=== PATIENT | male | born 1970 | race African-American/Black ===

== ENCOUNTER 2017-03-08 13:20 | Emergency (ER) | payer SELFPAY ==
--- NOTE | 2017-03-08 14:54 | ER Document Report ---
HPI - HPI Pain Level: 4 Notes: Patient is a 46-year-old male no significant past medical history presents the ED complaining of right MTP joint pain 2 days without any known injury. Patient states that it was more swollen on Saturday, but the swelling has decreased. Patient states that his pain has slightly improved since Saturday, but he continues to have pain with pressure to the area and weightbearing. Patient does not have a PCM and has not had blood work performed recently. Patient has never been told that he has elevated uric acid levels and/or gout. Patient has not noticed any significant redness, abscess, discharge, or red streaks. Denies any recent illness. Patient admits to smoking weed, but denies IV drug use. Denies any other drug allergies. Denies any headache, fever, URI, sore throat, chest pain, palpitations, syncope, cough, shortness of breath, wheeze, dyspnea, abdominal pain, nausea/vomiting/diarrhea, dysuria, hematuria, numbness/tingling, muscle paralysis/weakness, or rash. - ROS Notes: REVIEW OF SYSTEMS: CONSTITUTIONAL : Denies fever, chills, or sweats. Denies recent illness. EENT: Denies eye, ear, throat, or mouth pain or symptoms. Denies nasal or sinus congestion or discharge. Denies throat, tongue, or mouth swelling or difficulty swallowing. CARDIOVASCULAR: Denies chest pain. Denies palpitations or racing or irregular heart beat. Denies ankle edema. RESPIRATORY: Denies cough, cold, or chest congestion. Denies shortness of breath, difficulty breathing, or wheezing. GASTROINTESTINAL: Denies abdominal pain or distention. Denies nausea, vomiting , or diarrhea. Denies blood in vomitus, stools, or per rectum. Denies black, tarry stools. Denies constipation. GENITOURINARY: Denies difficulty urinating, painful urination, burning, frequency, blood in urine, or discharge. MUSCULOSKELETAL: see hpi SKIN: Denies rash, lesions or sores. NEUROLOGICAL: Denies headache. Denies sensory loss, numbness, or tingling. Denies seizures. ALL OTHER SYSTEMS REVIEWED AND NEGATIVE. Dictation was performed using [employer] voice recognition software - MUSCULOSKELETAL Musculoskeletal: REPORTS: Extremity pain - right big toe Past Medical History - Social History Smoking Status: Current Some Day Smoker Chew tobacco use (# tins/day): No Frequency of alcohol use: None Drug Abuse: Marijuana Family History: Reviewed & Not Pertinent Patient has suicidal ideation: No Patient has homicidal ideation: No Renal/ Medical History: Denies: Hx Peritoneal Dialysis - Immunizations Hx Diphtheria, Pertussis, Tetanus Vaccination: Yes Vertical Provider Document - CONSTITUTIONAL Agree With Documented VS: Yes Notes: PHYSICAL EXAMINATION: GENERAL: Well-appearing, well-nourished and in no acute distress. A&Ox4 LUNGS: Breath sounds clear to auscultation bilaterally and equal. No wheezes rales or rhonchi. HEART: Regular rate and rhythm without murmurs, rubs, gallops. Musculoskeletal: Rt foot/toes: FROM to passive/active. Strength 5+/5. + mild swelling noted to the rt MTP joint w/o significant erythema. No discharge, abscess, or streaks. + tenderness to palp of the MTP joint. N/V intact distal. Extremities: No cyanosis, clubbing, or edema b/l. Peripheral pulses 2+. Capillary refill less than 3 seconds. NEUROLOGICAL: Normal speech, limping gait. Normal sensory, motor exams PSYCH: Normal mood, normal affect. SKIN: Warm, Dry, normal turgor, no rashes or lesions noted. - INFECTION CONTROL TRAVEL OUTSIDE OF THE [place] IN LAST 30 DAYS: No - RESPIRATORY O2 Sat by Pulse Oximetry: 98 Course - Re-evaluation Re-evalutation: 03/08/17 15:52 Patient is an afebrile, well-hydrated, 46-year-old male who presents the ED with right MTP joint pain, suspect inflammatory at this time. Vitals are stable. PE is otherwise unremarkable for any neurovascular compromise, obvious tendon/ligament rupture, obvious fracture/dislocation, septic joint. Patient to monitor symptoms for acute changes and seek medical attention if so. X-ray was unremarkable for any acute pathology. I will send him home with a prescription for a steroid taper. Recommend conservative measures for symptoms. Recheck with your PCM in 3-5 days. Consider consult with orthopedics and physical therapy. Return to the ED with any worsening/ concerning symptoms otherwise as reviewed in discharge. Patient is in agreement. - Vital Signs Vital signs: Temp Pulse Resp BP Pulse Ox 97.7 F 58 L 16 121/76 98 03/08/17 14:00 03/08/17 14:00 03/08/17 14:00 03/08/17 14:00 03/08/17 14:00 Discharge - Discharge Clinical Impression: Toe pain, right Condition: Stable Disposition: HOME, SELF-CARE Instructions: Gout ([facility]), Gout Diet ([facility]), Steroid Medication Additional Instructions: Rest, Ice, Compression, Elevation Tylenol/ibuprofen as needed Light stretches daily Strength exercises as able Moist heat and massage may help F/u with your PCP in 3-5 days for a recheck Consider consult(s) with Orthopedics/physical therapy/podiatry for ongoing/ worsening symptoms Return to the ED with any worsening symptoms and/or development of fever, headache, chest pain, palpitations, syncope, shortness of breath, trouble breathing, abdominal pain, n/v/d, muscle weakness/paralysis, numbness/tingling, swelling, redness, or other worsening symptoms that are concerning to you. Prescriptions: Prednisone [Deltasone 10 mg Tablet] 10 mg PO ASDIR PRN #21 tablet PRN Reason: Referrals: [facility] ([facility]) [Provider Group] - Follow up as needed
--- NOTE | 2017-03-08 15:45 | RADIOLOGY REPORT (SQ) ---
EXAM DESCRIPTION: FOOT RIGHT COMPLETE COMPLETED DATE/TIME: 03/08/2017 3:14 pm REASON FOR STUDY: rt MTP joint pain COMPARISON: March 2010 NUMBER OF VIEWS: Three views. TECHNIQUE: AP, lateral and oblique radiographic images acquired of the right foot. LIMITATIONS: None. FINDINGS: MINERALIZATION: Normal. BONES: No acute fracture or dislocation. No worrisome bone lesions. The previously described four s esamoid bones at the level of the 1st MTP joint medially are again identified and appear unchanged. A single sesamoid bone is again identified laterally. JOINTS: Mild hallux valgus is identified. SOFT TISSUES: No soft tissue swelling. No foreign body. OTHER: No other significant finding. IMPRESSION: No acute fracture or dislocation. Other findings as noted above TECHNICAL DOCUMENTATION: JOB ID: [id number] [employer]- All Rights Reserved
[2017-03-08 16:38] VITALS: BP 123/73
== END 2017-03-08 16:38 | disposition home or self-care (01) ==
LOC: ER 13:20
DX: M25.571 Pain in right ankle and joints of right foot (principal); M25.474 Effusion, right foot; F17.200 Nicotine dependence, unspecified, uncomplicated
CPT/HCPCS: 99283

== ENCOUNTER 2017-05-09 23:56 | Emergency (ER) | payer OTHER ==
[2017-05-10] MEDS ORDERED: COLCHICINE 0.6 MG TABLET PO ONE ×2 (02:50)
--- NOTE | 2017-05-10 02:50 | ER Document Report ---
ED General - General Chief Complaint: Foot Pain Stated Complaint: FOOT PAIN Time Seen by Provider: 05/10/17 02:30 Notes: Patient is a 43-year-old male who presents with complaint of pain into his right MTP joint. Patient says he has a history of gout. He first had gout last month. He said he was treated and the symptoms went away. He says he has had exacerbation of his symptoms twice since then. He is now been dealing with the symptoms again for last few days but did not want come to the hospital. Said he never followed up patiently following his first recurrence of symptoms. He denies any fevers. Denies any penetrating injury or trauma to the foot. He says the pain stays mostly in the right MTP joint but sometimes will have a pain that shoots into the dorsum of his foot. No other complaints at this time. He does admit that he continues to eat meats and also drinks alcohol a few times a week. TRAVEL OUTSIDE OF THE [place] IN LAST 30 DAYS: No - Related Data Allergies/Adverse Reactions: No Known Allergies Allergy (Verified 03/08/17 13:21) Past Medical History - Social History Smoking Status: Unknown if Ever Smoked Frequency of alcohol use: Occasional Drug Abuse: None Family History: Reviewed & Not Pertinent Renal/ Medical History: Denies: Hx Peritoneal Dialysis - Immunizations Hx Diphtheria, Pertussis, Tetanus Vaccination: Yes Review of Systems - Review of Systems Notes: My Normal Review Basic REVIEW OF SYSTEMS: CONSTITUTIONAL : Denies fever, chills, or sweats. Denies recent illness. GASTROINTESTINAL: Denies abdominal pain. Denies nausea, vomiting, or diarrhea. MUSCULOSKELETAL: Pain in first metatarsophalangeal joint of right foot SKIN: Denies rash or skin lesions. NEUROLOGICAL: Denies sensory or motor loss. ALL OTHER SYSTEMS REVIEWED AND NEGATIVE. Physical Exam - Vital signs Vitals: Temp Pulse Resp BP Pulse Ox 97.9 F 77 18 131/72 H 96 05/10/17 00:38 05/10/17 00:38 05/10/17 00:38 05/10/17 00:38 05/10/17 00:38 - Notes Notes: General Appearance: Well nourished, alert, cooperative, no acute distress, moderate obvious discomfort. Vitals: reviewed, See vital signs table. Extremities: strength 5/5 in all extremities, good pulses in all extremities, patient has some swelling to the first MTP joints with just very faint redness. Exam is very consistent with that of gout. There is now a large amount of heat or warmth. Is no spreading redness of the foot. Remainder foot is nontender to palpation. Skin: warm, dry, appropriate color, no rash Neuro: speech clear, oriented x 3, normal affect, responds appropriately to questions. Course - Re-evaluation Re-evalutation: 05/10/17 05:06 Patient is what appears to be gout. He has a history of gout. Exam is consistent with gout. I have given him colchicine here. Will place him on indomethacin. I encouraged her follow-up with the primary care doctor for reevaluation and also to discuss options of placing him on medication to help prevent future gout attacks. Also talked him at length about the importance of following strict diet. Patient agrees. Patient to return to ER if he has spreading redness or swelling of his foot, fevers, or if he feels that his pain is worsening. Patient agrees with plan and will be discharged home. Dictation of this chart was performed using voice recognition software; therefore, there may be some unintended grammatical errors. - Vital Signs Vital signs: Temp Pulse Resp BP Pulse Ox 98.3 F 59 L 14 124/64 97 05/10/17 02:55 05/10/17 02:55 05/10/17 02:55 05/10/17 02:55 05/10/17 02:55 Discharge - Discharge Clinical Impression: Gout Qualifiers: Gout site: foot Gout etiology: unspecified cause Chronicity: acute Laterality: right Qualified Code(s): M10.9 - Gout, unspecified Condition: Good Disposition: HOME, SELF-CARE Instructions: Family Physicians / Practices Additional Instructions: Gout Diet Changing your diet can decrease the uric acid in your blood. High levels of uric acid cause gouty arthritis and uric acid kidney stones. If you have gout , you should avoid meats that are high in purine. Meat products to avoid include liver, kidneys, and brains. In general, poultry is better than red meats. Seafoods to avoid include anchovies, sardines, carbone, mackerel, and scallops. In addition to limiting purine-rich foods, people with gout should limit protein intake to 10-15% of total calories. Carbohydrate intake should be around 50% of total daily calories. Limit fat intake to 30% of total daily calories. Cholesterol intake should be less than 300 mg/day. Maintain or achieve a healthy body weight. Weight loss should be gradual. Rapid weight loss can actually increase uric acid levels temporarily. Alcohol, especially beer, should be avoided. Get plenty of fluids. This dilutes urinary uric acid, and helps prevent uric acid kidney stones. Drink eight to twelve cups of water daily. Please take the last pill of colchicine 1 hour after we give you the inital dose. Please take the Indomethacin with food. Please follow up with a primary care doctor in 1 week for reevaluation and for discussion about medications that can help prevent gout. Please return to the ER if you have worsening pain, fevers, or increasing swelling. Prescriptions: Indomethacin [Indocin 50 mg Capsule] 50 mg PO TID #21 capsule
[2017-05-10 02:57] VITALS: BP 124/64
== END 2017-05-10 03:00 | disposition home or self-care (01) ==
LOC: ER 23:56
DX: M10.9 Gout, unspecified (principal)
CPT/HCPCS: 99283

== ENCOUNTER 2017-08-09 01:02 | Emergency (ER) | payer OTHER ==
[2017-08-09 02:01] LABS: ABSOLUTE BASOPHILS # (AUTO) 0.1 10^3/uL (0.0-0.2); ABSOLUTE EOSINOPHILS # (AUTO) 0.4 10^3/uL (0.0-0.6); ABSOLUTE LYMPHOCYTES (AUTO) 3.4 10^3/uL (0.5-4.7); ABSOLUTE MONOCYTES (AUTO) 0.6 10^3/uL (0.1-1.4); ABSOLUTE NEUT (AUTO) 2.8 10^3/uL (1.7-8.2); BASOPHILS % (AUTO) 1.4 % (0-2); EOSINOPHILS % (AUTO) 5.1 % (0-6); HEMATOCRIT 43.6 % (37.9-51.0); HEMOGLOBIN 14.5 g/dL (13.5-17.0); LYMPHOCYTES % (AUTO) 47.6 % (13-45); MEAN CORPUSCULAR HEMOGLOBIN 28.6 pg (27.0-33.4); MEAN CORPUSCULAR HGB CONC 33.2 g/dL (32.0-36.0); MEAN CORPUSCULAR VOLUME 86 fl (80-97); MONOCYTES % (AUTO) 7.6 % (3-13); PLATELET COUNT 230 10^3/uL (150-450); RED BLOOD COUNT 5.06 10^6/uL (4.35-5.55); RED CELL DISTRIBUTION WIDTH 13.5 % (11.5-14.0); SEGMENTED NEUTROPHILS % (AUTO) 38.3 % (42-78); TOTAL CELLS COUNTED % (AUTO) 100 %; WHITE BLOOD COUNT 7.3 10^3/uL (4.0-10.5)
[2017-08-09 02:23] LABS: ALANINE AMINOTRANSFERASE 34 U/L (21-72); ALKALINE PHOSPHATASE 67 U/L (38-126); ANION GAP 13 (5-19); ASPARTATE AMINO TRANSFERASE 24 U/L (17-59); BILIRUBIN,DIRECT 0.4 mg/dL (0.0-0.4); BILIRUBIN,TOTAL 0.4 mg/dL (0.2-1.3); BLOOD UREA NITROGEN 16 mg/dL (7-20); CALCIUM 9.6 mg/dL (8.4-10.2); CARBON DIOXIDE 26 mmol/L (22-30); CHLORIDE 105 mmol/L (98-107); GLUCOSE 134 mg/dL (75-110); POTASSIUM 3.8 mmol/L (3.6-5.0); SODIUM 144.4 mmol/L (137-145)
[2017-08-09 03:34] LABS: FREE T3 4.92 pg/mL (2.77-5.27); FREE T4 (FREE THYROXINE) 0.99 ng/dL (0.78-2.19)
--- NOTE | 2017-08-09 03:52 | ER Document Report ---
ED General - General Chief Complaint: Sore Throat Stated Complaint: sore throat Time Seen by Provider: 08/09/17 01:24 Notes: Patient is a 47 year old male who presents with complaint of swelling in his neck for 9 months. He says he thinks his lymph nodes are swollen but when asked where the swelling is he actually points at his thyroid gland. He says that he is also noticed that he has lost weight over last several weeks. He told his mom what was going on his mom told to come to the ER to have blood work performed forgot what is wrong with him. Patient takes no medications is otherwise healthy. He has not seen a doctor about the swelling that he is feeling. He says no other symptoms he has a sometimes he gets a choking type sensation. He says this only occurs when he smokes marijuana. He says if he does not smoke marijuana he does not get the choking type sensation. He denies any current tobacco use. Says he does drink about 2-3 beers a day. TRAVEL OUTSIDE OF THE [place] IN LAST 30 DAYS: No - Related Data Allergies/Adverse Reactions: No Known Allergies Allergy (Verified 03/08/17 13:21) Past Medical History - Social History Smoking Status: Unknown if Ever Smoked Frequency of alcohol use: Occasional Drug Abuse: Marijuana Family History: Reviewed & Not Pertinent Patient has suicidal ideation: No Patient has homicidal ideation: No Renal/ Medical History: Denies: Hx Peritoneal Dialysis - Immunizations Hx Diphtheria, Pertussis, Tetanus Vaccination: Yes Review of Systems - Review of Systems Notes: My Normal Review Basic REVIEW OF SYSTEMS: CONSTITUTIONAL : Denies fever, chills, or sweats. Denies recent illness. Weight loss. EENT: Denies eye, ear, throat, or mouth pain or symptoms. Denies nasal or sinus congestion. Patient is swelling of her thyroid. CARDIOVASCULAR: Denies chest pain. RESPIRATORY: Denies cough, cold, or chest congestion. Denies shortness of breath, difficulty breathing, or wheezing. GASTROINTESTINAL: Denies abdominal pain. Denies nausea, vomiting, or diarrhea. Denies constipation. Last BM: GENITOURINARY: Denies difficulty urinating, painful urination, burning, frequency, or blood in urine.: MUSCULOSKELETAL: Denies neck or back pain or joint pain or swelling. SKIN: Denies rash or skin lesions. NEUROLOGICAL: Denies altered mental status or loss of consciousness. Denies headache. Denies weakness or paralysis or loss of use of either side. Denies problems with gait or speech. Denies sensory or motor loss. ALL OTHER SYSTEMS REVIEWED AND NEGATIVE. Physical Exam - Vital signs Vitals: Temp Pulse Resp BP Pulse Ox 97.4 F 64 18 142/89 H 98 08/09/17 01:09 08/09/17 01:09 08/09/17 01:09 08/09/17 01:09 08/09/17 01:09 - Notes Notes: General Appearance: Well nourished, alert, cooperative, no acute distress, no obvious discomfort. Well-appearing. Vitals: reviewed, See vital signs table. Head: no swelling or tenderness to the head Eyes: PERRL, EOMI, Conjuctiva clear Mouth: No decreasd moisture Throat: No tonsillar inflammation, No airway obstruction, No lymphadenopathy Neck: Supple, no neck tenderness, mildly symmetrically enlarged thyroid on exam. Lungs: No wheezing, No rales, No rhonci, No accessory muscle use, good air exchange bilaterally. Heart: Normal rate, Regular rythm, No murmur, no rub Abdomen: Normal BS, soft, No rigidity, No abdominal tenderness, No guarding, no rebound, no abdominal masses, no organomegaly Extremities: strength 5/5 in all extremities, good pulses in all extremities, no swelling or tenderness in the extremities, no edema. Skin: warm, dry, appropriate color, no rash Neuro: speech clear, oriented x 3, normal affect, responds appropriately to questions. Course - Re-evaluation Re-evalutation: 08/09/17 04:49 I did call lab. Said that she did run a TSH is undergoing auditor/quality and is why there is a big delay resulting this. T3 and T4 also not resulted. She says that these are indeed ready to resulting at this time. These are normal. I did speak with the patient informed him of the late he is understanding of that. We will continue wait for the results of his TSH. 08/09/17 05:52 The area of swelling the patient points to on his neck is actually enlarged thyroid gland. Ultrasound did not show any evidence of masses or tumors or abnormal cysts per the report from radiologist. His thyroid function is currently normal. He otherwise looks well and has no further complaints. Feel he is safe to be discharged home. I will refer him to primary care doctor to get and continue workup as thyroid and to continue to watch his TSH and T4 levels. Informed him that he must return to ER immediately if he feels jittery , has palpitations, has fever, or if he feels unwell in any way. Patient agrees with plan will be discharged home. Dictation of this chart was performed using voice recognition software; therefore, there may be some unintended grammatical errors. - Vital Signs Vital signs: Temp Pulse Resp BP Pulse Ox 97.4 F 64 18 142/89 H 98 08/09/17 01:09 08/09/17 01:09 08/09/17 01:09 08/09/17 01:09 08/09/17 01:09 - Laboratory Result Diagrams: 08/09/17 01:45 08/09/17 01:45 Laboratory results interpreted by me: 08/09/17 08/09/17 01:45 01:45 Seg Neutrophils % 38.3 L Lymphocytes % 47.6 H Glucose 134 H Discharge - Discharge Clinical Impression: Enlarged thyroid Condition: Good Disposition: HOME, SELF-CARE Instructions: Family Physicians / Practices Additional Instructions: Your thyroid feels enlarged on exam. Your ultrasound did not show any abnormal masses or cyst on your thyroid. Currently your Thyroid function is normal according to your blood work. Because of your symptoms it is very important that you follow up with a primary care physician to discuss further workup of your thyroid. please do not smoke marijuana. Please return to the ER immediately if you develop increasing neck swelling, fevers, difficulty breathing, difficulty swallowing, or if you feel unwell.
[2017-08-09 05:38] LABS: THYROID STIMULATING HORMONE 1.7 uIU/mL (0.47-4.68)
--- NOTE | 2017-08-09 06:17 | RADIOLOGY REPORT (SQ) ---
EXAM DESCRIPTION: U/S THYROID/SFT TISS HD NECK CLINICAL HISTORY: 47 years, Male, thyroid enlargement w/ weight loss COMPARISON: None. LIMITATIONS: None. FINDINGS: 5.9 x 2.1 x 2.6 cm right thyroid lobe, 6.0 x 2.3 x 2.1 cm left thyroid lobe, 0.7 cm thick isthmus, likely benign cystic lesions of the left thyroid lobe measures 0.3 cm and 0.4 cm, and prominent left cervical lymph nodes measuring up to 1.4 x 0.4 cm and 1.5 x 0.4 cm. IMPRESSION: Normal thyroid sonogram.
[2017-08-09 06:47] VITALS: BP 126/80
== END 2017-08-09 06:30 | disposition home or self-care (01) ==
LOC: ER 01:02
DX: E04.9 Nontoxic goiter, unspecified (principal); R63.4 Abnormal weight loss; Z68.25 Body mass index [BMI] 25.0-25.9, adult; F12.10 Cannabis abuse, uncomplicated; R09.89 Other specified symptoms and signs involving the circulatory and respiratory systems
CPT/HCPCS: 36415; 76536; 80053; 84439; 84443; 84481; 85025; 99284

== ENCOUNTER 2018-03-27 23:01 | Emergency (ER) | payer SELFPAY ==
--- NOTE | 2018-03-28 01:13 | ER Document Report ---
HPI - HPI Patient complains to provider of: right sided facial pain Time Seen by Provider: 03/28/18 00:56 Pain Level: 1 Context: Patient is a 47-year-old male that comes to the emergency department for chief complaint of pain over the right side of his face for the past month. He states that symptoms are intermittently much worse, he intermittently has a lot of congestion as well. He states at times it feels like it is swollen and it is pa inful to the touch. He denies fever chills, headache, he denies neck pain. He reports occasional mild sore throat. Smoking or any daily medications. He denies any medical history. Past Medical History - General Information source: Patient - Social History Smoking Status: Current Some Day Smoker Frequency of alcohol use: None Drug Abuse: None Lives with: Family Family History: Reviewed & Not Pertinent - Medical History Medical History: Negative Renal/ Medical History: Denies: Hx Peritoneal Dialysis Surgical Hx: Negative - Immunizations Immunizations up to date: Yes Hx Diphtheria, Pertussis, Tetanus Vaccination: Yes Vertical Provider Document - CONSTITUTIONAL General Appearance: WD/WN, No Apparent Distress - INFECTION CONTROL TRAVEL OUTSIDE OF THE [place] IN LAST 30 DAYS: No - HEENT HEENT: Atraumatic, Normocephalic. negative: Normal ENT Exam - Swollen turbinates bilaterally, worse on the right, no polyp seen. Unremarkable nasal exam otherwise. Pain with palpation over the right maxillary sinus. Otherwise unremarkable ENT exam. - NECK Neck: Normal Inspection - RESPIRATORY Respiratory: Breath Sounds Normal, No Respiratory Distress - CARDIOVASCULAR Cardiovascular: Regular Rate, Regular Rhythm - GI/ABDOMEN Gastrointestinal: Abdomen Soft, Abdomen Non-Tender - BACK Back: Normal Inspection - MUSCULOSKELETAL/EXTREMETIES Musculoskeletal/Extremeties: MAEW, FROM, Non-Tender - NEURO Level of Consciousness: Awake, Alert, Appropriate - DERM Integumentary: Warm, Dry, No Rash Course - Re-evaluation Re-evalutation: Facial pain appears to be from sinusitis. Unremarkable oral pharyngeal exam. Unremarkable exam otherwise. Patient has been dealing with this for a month. As result he will be treated with antibiotics in addition to antiallergy medications. Discussed follow-up and return precautions. Patient states understanding and agreement. - Vital Signs Vital signs: Temp Pulse Resp BP Pulse Ox 97.7 F 62 16 112/57 L 97 03/27/18 23:10 03/27/18 23:10 03/27/18 23:10 03/27/18 23:10 03/27/18 23:10 Discharge - Discharge Clinical Impression: Facial pain Sinusitis Qualifiers: Sinusitis location: maxillary Chronicity: acute Recurrence: non-recurrent Qualified Code(s): J01.00 - Acute maxillary sinusitis, unspecified Condition: Stable Disposition: HOME, SELF-CARE Additional Instructions: Your evaluation is most consistent with allergic inflammation and a right-sided sinus infection of the maxillary sinus. Take nasal spray and allergy medication as prescribed, I recommend that you take these daily to prevent this from happening again. Take amoxicillin as prescribed to completion. Follow-up with primary care. Return for any concerning symptoms including severe swelling, severe pain, fever, or any other concerning or worsening symptoms. Prescriptions: Amoxicillin Trihydrate [Amoxil 875 mg Tablet] 1 tab PO BID #20 tablet Fexofenadine HCl [Angelika Allergy] 180 mg PO DAILY #30 tablet Fluticasone Propionate [Flonase Nasal [place] 50 Mcg/[place] 16 gm] 2 sprays NASL Q12 #1 inhaler
[2018-03-28 02:03] VITALS: BP 121/64
== END 2018-03-28 02:03 | disposition home or self-care (01) ==
LOC: ER 23:01
DX: J01.00 Acute maxillary sinusitis, unspecified (principal); R51 Headache; J02.9 Acute pharyngitis, unspecified; F17.200 Nicotine dependence, unspecified, uncomplicated
CPT/HCPCS: 99283

== ENCOUNTER 2018-05-27 00:38 | Emergency (ER) | payer SELFPAY ==
[2018-05-27] MEDS ORDERED: DEXAMETHASONE SOD PHOS INJ 10 MG/1 ML VIAL IM ONE (02:33)
--- NOTE | 2018-05-27 02:36 | ER Document Report ---
HPI - HPI Time Seen by Provider: 05/27/18 02:33 Pain Level: 3 Context: Patient is a 47-year-old male that comes to the emergency department for chief complaint of intermittent pressure sensation along the side of his nose with a swollen sensation. He states that it hurts in his sinuses. He was seen by me several months ago for this, he states that he took the antibiotics, he has been using the nasal spray, he did take antiallergy medication at times. Symptoms ar e intermittent. He denies worse symptoms, he denies fever, he denies headache. He denies epistaxis, sore throat. He does report some swollen lymph nodes in his neck. He also reports frequent heartburn and belching. He denies any abdominal pain, chest pain, shortness of breath. He denies any daily medications. He denies smoking, alcohol, recreational drugs. Past Medical History - General Information source: Patient - Social History Smoking Status: Never Smoker Drug Abuse: None Lives with: Family Family History: Reviewed & Not Pertinent Renal/ Medical History: Denies: Hx Peritoneal Dialysis - Immunizations Immunizations up to date: Yes Hx Diphtheria, Pertussis, Tetanus Vaccination: Yes Vertical Provider Document - CONSTITUTIONAL General Appearance: WD/WN, No Apparent Distress - INFECTION CONTROL TRAVEL OUTSIDE OF THE [place] IN LAST 30 DAYS: No - HEENT HEENT: negative: Normal ENT Exam - Swollen turbinates, nontender sinuses, nasal congestion. Unremarkable ears. Unremarkable oral pharyngeal exam. - NECK Neck: Other - Mild anterior cervical adenopathy bilaterally - RESPIRATORY Respiratory: Breath Sounds Normal, No Respiratory Distress - CARDIOVASCULAR Cardiovascular: Regular Rate, Regular Rhythm - GI/ABDOMEN Gastrointestinal: Abdomen Soft, Abdomen Non-Tender - BACK Back: Normal Inspection - MUSCULOSKELETAL/EXTREMETIES Musculoskeletal/Extremeties: MAEW, FROM, Non-Tender - NEURO Level of Consciousness: Awake, Alert, Appropriate Motor/Sensory: No Motor Deficit, No Sensory Deficit - DERM Integumentary: Warm, Dry, No Rash Course - Re-evaluation Re-evalutation: Patient actually looks great. He does have some swollen turbinates, nasal congestion, and mild anterior cervical adenopathy. Otherwise his exam is very benign. No evidence of acute infection, especially bacterial infection. Patient is smiling, talkative, well-appearing. Unremarkable vital signs. Discussed options with patient. After discussion decision was made to provide him with additional decongestant, dexamethasone here, and medication for GERD. Discussed follow-up and return precautions. Patient states satisfaction and agreement. - Vital Signs Vital signs: Temp Pulse Resp BP Pulse Ox 98.4 F 57 L 18 133/76 H 98 05/27/18 00:53 05/27/18 00:53 05/27/18 00:53 05/27/18 00:53 05/27/18 00:53 Discharge - Discharge Clinical Impression: Sinus pressure, Belching Condition: Stable Disposition: HOME, SELF-CARE Additional Instructions: Your evaluation is consistent with intermittent sinus pressure but no sinus infection is seen at this time. This probably has a seasonal component. Take Sudafed as needed for decongestion, continue Flonase nasal spray, you have been medicated additionally here for your symptoms. Because of frequent belching and reflux I recommend the Pepcid as needed. If this continues follow-up with primary care. Return for any concerning symptoms including severe headache, fever, abdominal pain, or any other concerning symptoms. Prescriptions: Famotidine [Pepcid 20 mg Tablet] 20 mg PO BID #20 tablet Pseudoephedrine HCl [Sudafed 12 Hour] 120 mg PO Q12 PRN #14 tablet.er PRN Reason:
[2018-05-27 03:02] VITALS: BP 132/81
== END 2018-05-27 03:03 | disposition home or self-care (01) ==
LOC: ER 00:38
DX: R51 Headache (principal); R14.2 Eructation; R22.1 Localized swelling, mass and lump, neck; J34.89 Other specified disorders of nose and nasal sinuses; R22.0 Localized swelling, mass and lump, head; R12 Heartburn
CPT/HCPCS: 99283; 96372; J1100